=== PATIENT | female | born 1975 | race Caucasian/White ===

== ENCOUNTER 2024-01-27 04:12 | Emergency (ER) | payer SELFPAY ==
[2024-01-27 04:18] VITALS: BP 158/100; PULSE 120; TEMP 36.6; O2SAT 98; BMI 31.6
--- NOTE | 2024-01-27 04:24 | XR_ITS ---
The [address] [address] Patient Name: RICHARD VILLA MRN: [id number] date: 1975 Sex: F Assigned Patient Location: ER Current Patient Location: ED.MAIN Accession/Order Number: [id number] Exam Date: 01/27/2024 04:28 Report Date: 01/27/2024 05:06 At the request of: CARY HARRIS Procedure: XR tibia fibula LT 2V EXAM: XR tibia fibula LT 2V HISTORY: Rule out foreign body, anterior below knee redness and swelling to the left leg. COMPARISON: None available TECHNIQUE: 2 views left tibia-fibula x-rays, 4 images FINDINGS: Soft tissue swelling of the left leg. No acute fracture line, dislocation, or focal osseous erosion. No radiopaque foreign body. XR/XR tibia fibula LT 2V IMPRESSION: Soft tissue swelling of the left leg without radiographic evidence for acute bony injury. No radiopaque foreign body identified. Electronically authenticated by: DENTON MCNULTY Date: 01/27/2024 05:06
[2024-01-27 04:54] LABS: Basophils Absolute Auto 0.1 10^3/uL (0.0-0.1); Basophils Percent Auto 0.4 % (0.2-2.0); Eosinophils Absolute Auto 0.1 10^3/uL (0.0-0.7); Eosinophils Percent Auto 0.9 % (0.9-7.0); Hemoglobin 10.9 g/dL (12.0-16.0); Immature Granulocytes Abs Auto 0.04 10^3/uL (0.00-0.03); Immature Granulocytes Pct Auto 0.3 % (0.0-0.5); Lymphocytes Absolute Auto 1.6 10^3/uL (1.2-3.8); Lymphocytes Percent Auto 12.2 % (20.5-60.0); Mean Corpuscular HGB Conc 32.1 g/dL (29.9-35.2); Mean Corpuscular Hemoglobin 28.1 pg (26.7-34.0); Mean Corpuscular Volume 87.6 fL (81.0-99.0); Mean Platelet Volume 10.5 fL (9.5-13.5); Monocytes Absolute Auto 1.1 10^3/uL (0.3-0.8); Monocytes Percent Auto 8.7 % (1.7-12.0); Neutrophils Absolute Auto 9.9 10^3/uL (1.4-6.5); Neutrophils Percent Auto 77.5 % (43.0-75.0); Platelet Count 414 10^3/uL (150-450); Red Blood Count 3.88 10^6/uL (4.20-5.40); Red Cell Distribution Width 15.5 % (11.0-15.0); White Blood Count 12.8 10^3/uL (4.0-11.0)
[2024-01-27 05:05] LABS: BUN Creatinine Ratio 21.2; Calcium 9.3 mg/dL (8.5-10.1); Carbon Dioxide 26.5 mmol/L (21.0-32.0); Chloride 103 mmol/L (98-107); Estimated GFR (African America >60 (>=60); Estimated GFR (Non-African Ame >60 (>=60); Glucose 150 mg/dL (74-106); Potassium 3.5 mmol/L (3.5-5.1); Sodium 140 mmol/L (136-145)
--- NOTE | 2024-01-27 05:09 | ED.EXTPRO1 ---
HPI - Extremity Problem General Chief complaint: Extremity Problem, Nontraumatic Stated complaint: PAIN IN LEFT LEG Time Seen by Provider: 01/27/24 04:21 Source: patient Mode of arrival: walk-in Limitations: no limitations History of Present Illness HPI Narrative: 48-year-old female presents for red nests and swelling to her left lower leg anteriorly. She believes she has a skin infection, she has had it previously. No fever. She had a scratch on her leg. No chest pain or shortness of breath fever or vomiting. Symptoms been present for few days and it is getting a bit worse. Related Data Home Medications ?Medication ?Instructions ?Recorded ?Confirmed alprazolam 1 mg tablet 1 mg PO BID 01/27/24 01/27/24 dextroamphetamine-amphetamine 20 20 mg PO BID 01/27/24 01/27/24 mg tablet Previous Rx's ?Medication ?Instructions ?Recorded cephalexin 500 mg capsule 500 mg PO QID 10 days #40 caps 01/27/24 Allergies Allergy/AdvReac Type Severity Reaction Status Date / Time No Known Drug Allergies Allergy Verified 01/27/24 04:18 Review of Systems ROS Narrative A ten point review of systems is negative except as noted above. Exam Narrative Exam Narrative: Nurses note and vital signs reviewed and patient is not hypoxic. General: The patient appears well and in no apparent distress. Patient is resting comfortably on cart. Skin: Warm, dry, no pallor noted. There is erythema on the left lower leg distally, anteriorly. The calf is not erythematous. The erythema mildly extends up towards the knee. There is no open area or drainage. Head: Normocephalic, atraumatic Eye: Normal conjunctiva, no drainage Ears, Nose, Mouth, and Throat: oral mucosa is moist. Nares patent. Cardiovascular: Regular Rate and Rhythm Respiratory: Patient is in no distress, no accessory muscle use, lungs are clear to auscultation, no wheezing, rales or rhonchi Back: non-tender GI: Soft and nontender Musculoskeletal: Left lower leg is mildly swollen and erythematous as described above Neurological: A&O, normal speech Psychiatric: Cooperative Constitutional Vital Signs, click to edit/add: Last Vital Signs Temp 97.8 F 01/27/24 04:18 Pulse 120 H 01/27/24 04:18 Resp 18 01/27/24 04:18 BP 158/100 H 01/27/24 04:18 Pulse Ox 98 01/27/24 04:18 O2 Del Method Room Air 01/27/24 04:18 Course Vital Signs Vital signs: Vital Signs Temperature 97.8 F 01/27/24 04:18 Pulse Rate 120 H 01/27/24 04:18 Respiratory Rate 18 01/27/24 04:18 Blood Pressure 158/100 H 01/27/24 04:18 Pulse Oximetry 98 01/27/24 04:18 Oxygen Delivery Method Room Air 01/27/24 04:18 Temperature 97.8 F 01/27/24 04:18 Pulse Rate 120 H 01/27/24 04:18 Respiratory Rate 18 01/27/24 04:18 Blood Pressure 158/100 H 01/27/24 04:18 Pulse Oximetry 98 01/27/24 04:18 Oxygen Delivery Method Room Air 01/27/24 04:18 MDM - Extremity (Nontraumatic) MDM Narrative Medical decision making narrative: My clinical impression is that she has cellulitis. At this point I do not feel that she requires admission to the hospital. She was given IV Ancef and prescribed Keflex. She will return for worsening symptoms. I have no clinical concern for DVT. Treatment diagnosis and follow-up were discussed with the patient. Differential Diagnosis Differential diagnosis: Likely other (Cellulitis, DVT) Lab Data Labs: Lab Results 01/27/24 Range/Units 04:44 WBC 12.8 H (4.0-11.0) 10^3/uL RBC 3.88 L (4.20-5.40) 10^6/uL Hgb 10.9 L (12.0-16.0) g/dL Hct 34.0 L (36.0-48.0) % MCV 87.6 (81.0-99.0) fL MCH 28.1 (26.7-34.0) pg MCHC 32.1 (29.9-35.2) g/dL RDW 15.5 H (11.0-15.0) % Plt Count 414 (150-450) 10^3/uL MPV 10.5 (9.5-13.5) fL Neut % (Auto) 77.5 H (43.0-75.0) % Lymph % (Auto) 12.2 L (20.5-60.0) % Smith % (Auto) 8.7 (1.7-12.0) % Eos % (Auto) 0.9 (0.9-7.0) % Baso % (Auto) 0.4 (0.2-2.0) % Neut # (Auto) 9.9 H (1.4-6.5) 10^3/uL Lymph # (Auto) 1.6 (1.2-3.8) 10^3/uL Smith # (Auto) 1.1 H (0.3-0.8) 10^3/uL Eos # (Auto) 0.1 (0.0-0.7) 10^3/uL Baso # (Auto) 0.1 (0.0-0.1) 10^3/uL Abs Immat Gran (auto) 0.04 H (0.00-0.03) 10^3/uL Imm/Tot Granulo (auto) 0.3 (0.0-0.5) % Imaging Data Left tibia: Radiologist's impression: ITS Impressions Tibia/Fibula X-Ray 01/27/24 04:24 IMPRESSION: Soft tissue swelling of the left leg without radiographic evidence for acute bony injury. No radiopaque foreign body identified. Electronically authenticated by: DENTON MCNULTY Date: 01/27/2024 05:06 Discharge Plan Discharge Stand Alone Forms: Portal Instructions Chief Complaint: Extremity Problem, Nontraumatic Clinical Impression: Cellulitis Patient Disposition: Home, Self-Care Time of Disposition Decision: 05:09 Condition: Good Prescriptions / Home Meds: New cephalexin 500 mg capsule 500 mg PO QID 10 Days Qty: 40 0RF No Action alprazolam 1 mg tablet 1 mg PO BID dextroamphetamine-amphetamine 20 mg tablet 20 mg PO BID Print Language: Salvadorean Instructions: Cellulitis (ED) Referrals: MARIANO JONES [Primary Care Provider] - 1 week
[2024-01-27] MEDS: CEFAZOLIN SODIUM/DEXTROSE,ISO 1 GM/50 ML IV.SOLN IV (05:18)
[2024-01-27 06:06] VITALS: BP 129/83; PULSE 110; O2SAT 99
== END 2024-01-27 06:09 | disposition home or self-care (01) ==
PROVIDERS: Emergency Provider Emergency Medicine; PCP Nurse Practitioner Family
DX: L03.116 Cellulitis of left lower limb (principal); Z79.899 Other long term (current) drug therapy
CPT/HCPCS: 36415; 73590; 80048; 85025; 96365; 99284

== ENCOUNTER 2024-02-01 03:15 | Emergency (ER) | payer SELFPAY ==
[2024-02-01 03:19] VITALS: BP 177/86; PULSE 116; TEMP 36.7; O2SAT 96; BMI 30.8
--- NOTE | 2024-02-01 03:40 | ED_ITS ---
HPI - Skin/Abscess/Foreign Bdy General Chief complaint: Skin/Abscess/Foreign Body Stated complaint: R SKIN RASH Time Seen by Provider: 02/01/24 03:33 Source: patient Mode of arrival: walk-in Limitations: no limitations History of Present Illness HPI narrative: 48-year-old female presents for redness to her right ankle area. She believes she was bit by a spider. She was seen here few days ago and had similar finding on the left lower leg anteriorly. She was given IV Ancef and placed on Keflex and that area is much better now. This area of redness developed within the last day. No drainage and she did not see any spiders. No fever vomiting or generalized weakness. Related Data Home Medications ?Medication ?Instructions ?Recorded ?Confirmed alprazolam 1 mg tablet 1 mg PO BID 01/27/24 02/01/24 dextroamphetamine-amphetamine 20 20 mg PO BID 01/27/24 02/01/24 mg tablet Lamictal PO BID 02/01/24 fluoxetine PO BID 02/01/24 Previous Rx's ?Medication ?Instructions ?Recorded cephalexin 500 mg capsule 500 mg PO QID 10 days #40 caps 01/27/24 sulfamethoxazole 800 1 tab PO BID 10 days #20 tabs 02/01/24 mg-trimethoprim 160 mg tablet (Bactrim DS) Allergies Allergy/AdvReac Type Severity Reaction Status Date / Time No Known Drug Allergies Allergy Verified 02/01/24 03:25 Review of Systems ROS Narrative A ten point review of systems is negative except as noted above. Exam Narrative Exam Narrative: Nurses note and vital signs reviewed and patient is not hypoxic. General: The patient appears well and in no apparent distress. Patient is resting comfortably on cart. Skin: Warm, dry, no pallor noted. There is erythema primarily in the right posterior ankle area extending onto her lateral foot. There is no open area or drainage or ulceration. Head: Normocephalic, atraumatic Eye: Normal conjunctiva, no drainage Ears, Nose, Mouth, and Throat: oral mucosa is moist. Nares patent. Cardiovascular: Regular Rate and Rhythm Respiratory: Patient is in no distress, no accessory muscle use, lungs are clear to auscultation, no wheezing, rales or rhonchi Back: non-tender GI: Soft and nontender Musculoskeletal: The patient has no evidence of calf tenderness, no pitting edema, symmetrical pulses noted bilaterally Neurological: A&O normal speech Psychiatric: Cooperative Constitutional Vital Signs, click to edit/add: Last Vital Signs Temp 98.0 F 02/01/24 03:19 Pulse 116 H 02/01/24 03:19 Resp 16 02/01/24 03:19 BP 177/86 H 02/01/24 03:19 Pulse Ox 96 02/01/24 03:19 O2 Del Method Room Air 02/01/24 03:19 Course Vital Signs Vital signs: Vital Signs Temperature 98.0 F 02/01/24 03:19 Pulse Rate 116 H 02/01/24 03:19 Respiratory Rate 16 02/01/24 03:19 Blood Pressure 177/86 H 02/01/24 03:19 Pulse Oximetry 96 02/01/24 03:19 Oxygen Delivery Method Room Air 02/01/24 03:19 Temperature 98.0 F 02/01/24 03:19 Pulse Rate 116 H 02/01/24 03:19 Respiratory Rate 16 02/01/24 03:19 Blood Pressure 177/86 H 02/01/24 03:19 Pulse Oximetry 96 02/01/24 03:19 Oxygen Delivery Method Room Air 02/01/24 03:19 MDM - Skin/Abscess/Foreign Bdy MDM Narrative Medical decision making narrative: The patient had recent blood work that was normal. She was given IV vancomycin. She will continue the Keflex that she is already on and will be prescribed Bactrim as well. Treatment diagnosis and follow-up were discussed with the patient. Differential Diagnosis Differential diagnosis: Likely dermatophytosis, cellulitis, insect bites and contact dermatitis Discharge Plan Discharge Stand Alone Forms: Portal Instructions Chief Complaint: Skin/Abscess/Foreign Body Clinical Impression: Cellulitis of right ankle Patient Disposition: Home, Self-Care Time of Disposition Decision: 04:12 Condition: Good Mode of Transportation: Private Vehicle Prescriptions / Home Meds: New sulfamethoxazole-trimethoprim [Bactrim DS] 800-160 mg tablet 1 tab PO BID 10 Days Qty: 20 0RF No Action alprazolam 1 mg tablet 1 mg PO BID dextroamphetamine-amphetamine 20 mg tablet 20 mg PO BID cephalexin 500 mg capsule 500 mg PO QID 10 Days Qty: 40 0RF Lamictal PO BID fluoxetine [Prozac] PO BID Print Language: Grenadian Instructions: Cellulitis (ED) Referrals: MARIANO JONES [Primary Care Provider] - 1 week
--- OUTSIDE RECORDS SUMMARY | 2024-02-01 04:13 | XMS_ITS | CCD ---
Author Organization [facility] Care Team Providers Care Barking Machine Feeder Name Role Phone Swathi Omalley Unavailable Swathi Omalley Primary Care Unavailable Dong Mckeon Attending Unavailable Dong Mckeon Admitting Unavailable Swathi Omalley Primary Care Unavailable Vivi Cazares Attending Unavailable Vivi Cazares Admitting Unavailable Allergies Allergy Classification Reported Allergen(s) Allergy Type Date of Onset Reaction(s) Facility (1 source) No Known Medication Allergies; Translations: [No Known Medication Allergies] Propensity to adverse reactions to drug (disorder) [facility] Repository Medications Current Medications Medication Drug Class(es) Dates Sig (Normalized) Sig (Original) ALPRAZolam 1 mg oral tablet (3 sources) Benzodiazepine take 1 tablet intravenously three times daily as needed ALPRAZolam 1 MG (Schedule IV Drug) TAKE 1 TABLET THREE TIMES A DAY NEEDED Oral for 30 Active FLUoxetine 20 mg oral capsule (3 sources) Serotonin Reuptake Inhibitor take 2 capsules by mouth every twenty-four hours Fluoxetine 20 MG 2 capsules Orally Once a day Active hydroCHLOROthiazide 25 mg oral tablet (4 sources) Thiazide Diuretic Start: 07-05-20 take 1 tablet by mouth every twenty-four hours hydroCHLOROthiazide 25 MG 1 tablet in the morning Orally Once a day for 30 day(s) Jul, Active lamoTRIgine 200 mg oral tablet (3 sources) Mood Stabilizer, Anti-epileptic Agent take 2 tablets by mouth every twenty-four hours lamoTRIgine 200 MG 2 tablets Orally Once a day Active perphenazine 2 mg oral tablet (3 sources) Phenothiazine take 1 tablet by mouth every twenty-four hours Perphenazine 2 MG 1 tablet Orally once daily Active predniSONE (1 source) predniSONE Activ e Completed/Discontinued Medications Medication Drug Class(es) Dates Sig (Normalized) Sig (Original) amphetamine aspartate 5 mg / amphetamine sulfate 5 mg / dextroamphetamine saccharate 5 mg / dextroamphetamine sulfate 5 mg oral tablet (1 source) Central Nervous System Stimulant take 1 tablet by mouth twice daily Adderall 20 MG 1 tablet Orally two times daily Not-Taking cloNIDine hydrochloride 0.1 mg oral tablet (1 source) Central alpha-2 Adrenergic Agonist cloNIDine HCl 0.1 MG TAKE 1 TABLET TWICE A DAY Orally twice daily for 30 days Not-Taking Problems Active Problems Problem Classification Problem Date Documented Da te Episodic/Chronic Congestive heart failure; nonhypertensive (3 sources) Heart failure; Translations: [Heart failure, unspecified] Chronic Essential hypertension (4 sources) Essential hypertension; Translations: [Essential (primary) hypertension] Onset: 07-26-2021 Resolved: 07-26-2021 Chronic Mood disorders (3 sources) Bipolar disorder; Translations: [Bipolar disorder, unspecified] Chronic Other nervous system disorders (3 sources) Chronic pain; Translations: [Other chronic pain] Chronic Other nutritional; endocrine; and metabolic disorders (2 sources) Hypoalbuminemia; Translations: [Other disorders of plasma-protein metabolism, not elsewhere classified] Chronic Thyroid disorders (4 sources) Graves' disease; Translations: [Thyrotoxicosis with diffuse goiter without thyrotoxic crisis or storm] Onset: 07-26-2021 Resolved: 07-26-2021 Chronic Past or Other Problems Problem Classification Problem Date Documented Da te Episodic/Chronic Other non-traumatic joint disorders (3 sources) Pain in right hip joint; Translations: [Pain in right hip] Episodic Spondylosis; intervertebral disc disorders; other back problems (6 sources) Lumbar radiculopathy; Translations: [Radiculopathy, lumbar region] Episodic Results Test Name Value Interpretation Reference Range Facility ECG 12 lead ECGon 01-27-2024 ECG 12 lead ECG [facility] [place] [address] Electrocardiograph Report Signed Patient: Richard Wills MR#: [id number] 9 : 1975 Acct:[id number] Age/Sex: 48 / F ADM Date: 01/26/24 Loc: ER Room: Type: [facility] ER Attending Dr: Ordering Provider: Vivi Cazares DO Date of Service: 01/26/24 ECG/ECG 12 lead ECG: Skin/Abscess/Foreign Body Copies to: Test Reason : Blood Pressure : 161/099 mmHG Vent. Rate : 108 BPM Atrial Rate : 108 BPM P-R Int : 148 ms QRS Dur : 078 ms QT Int : 354 ms P-R-T Axes : 076 -43 066 degrees QTc Int : 474 ms Sinus tachycardia Left axis deviation Low voltage QRS Abnormal ECG When compared with ECG of 23-AUG-2019 13:52, No significant change was found Confirmed by VIVI CAZARES DO ([id number]) on 01/27/2024 12:27:24 PM Referred By: Electronically Signed By:VIVI CAZARES DO Transcribed By: MUS Signed By Vivi Cazares DO [id number] Normal [facility] Coding Summaryon 06-26-2023 Coding Summary HTMLBase 64 PvahmxudQQl6wYo+PGhl YWQ+VQ3RZWWlO02amEXf pO0qZ7JGCUeZYgzkUSQY IAoOOuLfpxGrGF0nyBOx ZXJu IC8+QG8mVZQeZiwqiAAv z9K8rPD9N50sot4pQAvs rRX7QBSpCzYssqoru7gk xNt9FUuxEurgScKl JEJihS93ITU0hD67Zo44 pJUjxGIil5aueFo6TqXx RDEfUJZ7mTwfEUymc8Ta PPUqF70geSZdf6N7 IGNvbGxhcHNlOyBlbXB0 fV8oXYeuqcwxs8klvrww Tqg1lh66aHDfg2Z8xLU9 E4PqcbX1LTAiwMSz ZvzcxAYOfO3cokarq9lu txkaWzTlUGXnYEq8YVc6 FJVzdJylJsIhAM88DIF3 CPTnuiCrR5QoBNHg mTyzBfC9l9G3Tp5NZ7YX RmclA1CSFVEYHGedaBT+ FM29ej70Z4KvZjftAav9 TJWcWKX0wYN2mM5y DBSiPCdlu0W1bKF8M5Sm maHfvg1fg1cvSRIoSKlh X07udDSip4O3CUOgxMJ3 NGGglOrsUoNbgF74 Oyc+EICshTirb0BcZzze b1shl4rliXn5PmgrBNOq meVzwBlzFUE2j5JbHy7e JIHfwXY4pBV2nT1u JrBqMnD9OGsuD286OnWb sTGaYqoqD70dX3OlfMP+ OVEgVjt1XDZvxGodAW1s H7YrIQSxnsaaaJHv hKotRO1jCAZmtzrrYZTx yA2rBGPhV7m4LdYvZpW1 RMdyN9EvFHKlxsibBh99 cH7uMlWnQwW5PMdq E6VerqN9ECMoyEThSYqc DVJ3O09qd1S4APAfNUDv MEP2tOQ4jM5zuMeswipf bGVmdDsgdmVydGlj XBgwJPdvE292RNYpzNmk PkNvZGluZyBEYXRlOiAg MDkvMjYvMjAyMzwvdGQ+ RTGkSRU8sAuwBHYt jWCxMAylWx3xbFfnxCdq RG6kKXIehrwyHBUuwG1w OHRdzBXfxVlwYU3iBBUb jopks465HvLfTTE2 SYZpsTDiE3ErvB9fGeGk YBEpEXEyX8UbdFSzRDjv N232VFvaNaV9HMHooyPt U1UqVHNkbSqkAzI4 o2W5Fu3No2ErcoapC5Kl tJOlToApLhplMRv5A2Fr PjwvdHI+XJ73MSUeDE63 LMn7EDJ3zYgnUVou HLOoC5QvgA7aOwRuHXTp ZGRkOyc+PHRhYmxlIHdp ZHRoPScxMDAlJyBzdHls WB7lGy2hMZJeJRBh uSpwzDXpTzEde1fsEPIh IUsnXD4dtPymR5BaxOM5 FINmr9k9Hm00U24yH0Qa dXA+PCQvyPT4vGL0 rD1kFeNvWxO3MXxrL644 GaFonVHlOvccp4hja1wg jNd3AkX9TKXspcAmgOen FCD6x3PiQy28B95e IHdpZHRoPSIxNSUiIHZh xYrrpl2nbZ8lUp9+PGNv dEY6aKG6rG8zDtSyUtZ8 OIkiM222RjKwlOXa Ocvdp5bpx8wtgHv5XpXl SDFpjpBzdJthZAI3p0Bm Wd78U6NuyInno0FhRlk5 hg43oSCme9B8nDT8 H1OdMBBmkaitvBYfhHqw LG6eTQMykpdaQLXtfH2v ZKYjI4b0OjTtToJ9LMxv T5LngfT2DOQglHUd OYJctABIeF6jpaefj9tz uuuwQcXzUUWkDAq4CIc1 LMHzoZhiDfEiKXC5CxC2 FTG8tXYswA9zjXbt pppsuF9rKis+IEA3qNEs zQCRJL6fTmyudSS+PHRk GHB7rWfqGUdoQNBdrY3t GDRbI3z6HhQwWmU1 QQfjZ0HrdhD8VJUemHIm KMCmzWLKvS9puxkhq8lu gfhmXcMoJPLxCPv5MZw7 LWFsaWduOiBsZWZ0 NuZ5EVH7tNDsgH6xsEbb zbewcH1oDkq+QmlydGgg MTG9NTa4V1QbZgk8GBVy tErzAU5ciZBwQLnf Sh6zlUeecOaxML8pUZOd yzlkt768MdIvy8atTWGz uCRnSCizPWN0O98ij1C6 XJDqQPGaBIB8hHE0 lL6itYjocbponBXjoTey fyImmWvnVXdcTJijQ511 PWJfyOieFjMhNXx6Z3Di Qsf0ZUUyuYuxKN2n mUStLOixKg2gxXjijJfv PG9hAAOqarpco306BeIp m8boAOTtkZJuFPwvQZL6 R82zi3Z9SQZmFISq WWY9sNT6xN3pyXtbpbyq bGVmdDsgdmVydGljYWwt CHxmC624SITmrDgaCoAi uTn9W9FvAay3HJMq bKcvKJ5kmBBuXWecAr9j sFlnmCvlXG4qISAskppo l750GaFax5muHXXmfCDk RXnzTLN7H68jl0F5 PECyJQYdFKT8qAF4vD9q bGlnbjogbGVmdDsgdmVy oYrcGFzyTHciB009HRVn cDsnPlBhdGllbnQg GAojEOd7S4RoKqooiYY+ QT06CJQbHI95tDFgnMOb x4nzvLe3OuCrXLExFZH0 hJcxHAnja8SsFQHb H04nwDOpj5X8AULtiKay oAEqCnHrtET6eO6zCJli brnom5rzkmsnCpqhg0ys ye59lB57P75rCEwu ZHRoPSIzMCUiIHZhbGln nl9eyL2jQi3+PGNvbCB3 uBZ6hK5hYNEqNsM2SNvw N698FyCzlUWcFdbi l2pjw3tslAq3LzW6AFSv wpXxwNkxZLB0q0GmHn78 A17pENbjGRGgXZBsDZOu RLGekWvugr4dbO7i Ii8+QVEbnBY0kBU9wG5o PdUvEqP9DEcnB979UaPj uJMuIqhrN59tV7FdfPN+ UPIlTgu6EXDzuWey GT6bwVVpKLmdQa5cNTV4 QiUqQrHmGCznY3UzNAYg tjbwuuswqSB5SNUnEQGc dM69Jf6ugRkhGUVy rFBCtG0jqabbf1npamjt BnYdUKGsTRi3ZAd2SELo qDmnNgLpHBV9BoZ1TNY3 kAPeoS4kfIwudhkv hD2kX0RrDCQdqecfUu52 mE1sChPiJeW5EAdfDjd+ MGAEUqnIFCQKYFCFVZ7P UkVFTjwvdGQ+PHRk WCN3bLydOUijSMNutE3b EJBuK0f1QfVsXjK3VOrg T1CrGPTjwgwfAr94xH1s OvYoAfI8FPjcX6Um cyG3AACciGCdQRtnSFJ2 H70xm4A2SNCnIGDmCWC1 dMX1vT5dxTxqxnifpWWb dDsgdmVydGljYWwt VAqyG964FSQkfXueYnO9 SqMhJrJ8JpE7L4BdVtw9 IYQboWcpIU0bkKMoNDeu Uk7rzRhbhXyrCZ6r QJSwantrANBffN5rQLZi jZTjfNvtIL8eHVHsajgz c537BhYlLGM3RMWuxUPk N2KosN2yVvOnLQYn QXAlO8HpoZVhCGjrI692 JXkqToI4CPEgohXaF9Er WKRruJoyGpQ4w2K5Sz96 OSBZZWFyczwvdGQ+ GYEuOFL0bJcfUPtxVPIx cW6uEKEqZ3n5YwYsTuK4 EIzlU7SiQFZplvgpBz89 pS9pIsKjNeM4ELmv V8LwtmY7XHUftOHlNWkk TSC6L58lh9R2SJSgUUFr NDK4cSH5jG5kdWbvgnei bGVmdDsgdmVydGlj TFwhVMuvH081NXLsyBgo PkZFTUFMRTwvdGQ+PHRk FZR8kBluZPotVNQixD1j YEGtQ3f9HbVwYgD1 MNiwP1EvLVAdfyxfEh35 lA2sFaVmUmX9IPnxU2Yg lcJ4JGYgdUAcSCpuLRC9 B77lb6T5NKPqCBWg ZES2vBG8tN4iaHdtsekq bGVmdDsgdmVydGljYWwt CMesQ400QVCodZppAdWx HHKmCL4wsFwhxLG+ KB13qj46Y9CjNlbsTss4 GAXiBFH4yHB4xS9iTEMa IYowz8V7vXN3S6UjzuWq gc9uf8ziAPFnGPkn P91dkDKll8R6BKPpuFF1 GREeoMreZuHbzD15Iqj+ OFKcbKbzo1YiAnpgy2ad z5dpzSi8BpJfNGYz ecBesVhwRUC4x6UtIb72 Q24aKFgbXQViNWKfAXTv SCAqbBdixe6zdK4qGt3+ ITFtlEZ1kVJ9rR8i YvWxEqA6MVrcE722GzHd wTPtAdrmo4vfp0guwIo3 IjIwJSIgdmFsaWduPSJ0 h0KyEk35W2HshVvl z5BzOgl9wr70aJTif4U6 fIJ8C6QyQYItfkxmkZXj oQfoKM4nAYDedipbHPTx vE2bSMLdP1y3RqUl GmY3IYbtS6RnxoT6WEGz nEUlDTAwsKNMmA5chrnp c9hfyudeVfTbOTGkCDb1 YCo8STXlvDigQeTg KLQ9KhN0WRX2aITonJ7q mPydgsnoqX3nPdc+UGh5 q2fteAMzOQ0stLE2WZ51 HC35tBFjk1D6vEK2 J8TyMVXeafjodofvyRT0 ILHtPSSezZ64Kl1qcKac Dz0bEQEiYWW8UIYhqXGt O1RxaT2oSlTrZVUs QVUiN4RwiWRrNDrcC339 BBhpDxC5LYQbhwGfP5Sr HFOhqSruLcI1i1C5Sg2K HB13VT00QX25zSJz z1R9qBM5M2JkBNUrdsjj fesngMC1ZAQxOCTggV52 Rz8fgHnaJv4kYKUhQGI6 MBTikMYxJ9JiuQ2m ZuYyZQErAICkL4EpbMVb BIwiM373KPuiOqX4RFOs lmBlY6MwUZQmmEclNfU4 q6B2Hn0ATa52FB30 SC65eUQwd3H5sIE7Q1Ze AWCzbdligblgvRY6DEBg PKFbbJ63Ng1woBgfWz0q UMNfQPE9CWHkvAKn H7WnvZ7aJjBaZPScNLAo V9DhrUMoYLaeA272PGdx HlA6JSPxobKoR1IrLWJa yUzrMyB0e8A7Ji1Z JUcmbid2H2SgAnbucRC+ GS23JNAgGX11xLTxbVGt b8tyvDd6InKsJCRcRHH1 nDypBUmch1QuZXWn Y29 (more content not included)... [facility] Coding Queryon 06-25-2023 Coding Query Can you please document the HPI, ROS and physical exam for this chart? Thanks. [Electronically Signed on: 06/25/2023 20:25 EDT] Dong Mckeon DO [Verified on: 06/25/2023 20:25 EDT] Dong Mckeon DO [Transcribed on: 06/25/2023 20:06 EDT] [facility] C Urineon 06-16-2023 C Urine Urine Culture ordered as a result of parameters set on specific urine dip and urine microsopic results. <10,000 cfu/ml Normal [facility] Comment on above: Performed By: #### 1 [id number] #### [facility] (DEFAULT) [address] [place] [address] ED Clinical Summaryon 2022 ED Clinical Summary [facility] - Emergency Department [address] [place] [id number] ED Clinical Summary PERSON INFORMATION Name: RICHARD WILLS Age: 47 Years Sex: FEMALE : 1975 MRN: Acct#: Visit Reason: Back pain; Urine frequency; Dysuria; Kidney pain; BACK PAIN, DYSURIA Arrival: 06/14/2023 00:11:44 Discharge: 06/14/2023 02:17:00 LOS: 000 02:06 Check In: 06/14/2023 00:11:44 Checkout:06/14/2023 02:17:00 Address: [address] [place] [id number] PCP: Swathi Omalley DNP PROVIDER INFORMATION Provider Role Assigned Unassigned Barrett RN, [place] ED Nurse 06/14/2023 00:18:16 Dong Mckeon DO ED Provider 06/14/2023 00:53:16 VITALS INFORMATION Vital Sign Triage Latest Temperature Tympanic 37.0 DegC 37.0 DegC Temperature Temporal Artery Pulse Rate 73 bpm 55 bpm O2 Sat 99 % 96 % Respiratory Rate 17 br/min 18 br/min Blood Pressure /82 mmHg /82 mmHg MEDICAL INFORMATION Medications Given: Medication Dose Route phenazopyridine (Pyridium) 200 mg PO cephalexin 500 mg PO ibuprofen 600 mg PO Allergy Information: No Known Medication Allergies PHYSICIAN DOCUMENTATION DISCHARGE INFORMATION: Discharge Disposition: Home Discharge Location: Home PATIENT EDUCATION INFORMATION Instructions: Urinary Tract Infection, Adult Follow-Up: With: Address: When: Swathi Omalley [address] [place] [address] [facility] In 3 days 06/17/2023 Comments: home pyridium for discomfort, till turn urine orange Cephalexin for antibiotic Ibuprofen 600 mg three times per day for discomfort RETURN: FEVER< VOMIT< UNCONTROLLED PAIN We will call you if we need to change your antibiotic, based on the culture of dthe urine T H EMORY< ER PHYSICIAN< HB VITOR DIAGNOSIS: Dysuria Patient Understands: Yes - Patient/family/careg iver verbalizes understanding of instructions given Comment: [facility] ED Note - Physicianon 2022 ED Note - Physician Patient: RICHARD WILLS Age: 47 years Sex: FEMALE : 1975 Associated Diagnoses: Dysuria Author: Dong Mckeon DO Basic Information Time seen: Date & time 06/14/2023 00:54:00. History source: Patient. Arrival mode: Private vehicle, walking. History limitation: None. History of Present Illness The patient presents with This patient presents to the emergency room for increasing discomfort of the back, states 2 days, started old amoxicillin at home, also taking cranberry pills nothing is working for her she states she has had urinary tract infections in the past, she has frequency and urgency, getting up pretty often, he states that it got particularly worse today, no vomiting no fever, no history of kidney stones, not , no vomiting. No rashes, the discomfort is in the suprapubic area mostly but some soft in the back as well. She is seen in room #5, she is alert and appropriate, her head is normocephalic, neck is supple, no anterior posterior supraclavicular nodes, lungs are clear, no expiratory wheeze rales rhonchi Heart rate and rhythm 100 murmurs abdomen is soft, only discomfort is in the suprapubic area subjectively, relieved when she urinates she states. Extremities are nonswollen nontender. After Pyridium and ibuprofen, her discomfort was remarkably less, urine turned orange, her repeat examination much improved . Medical Decision Making Orders Launch Orders Pharmacy: Pyridium (Order): 200 mg, PO, Once ibuprofen (Order): 600 mg, PO, Once, Launch Orders Laboratory: Culture Urine (Order): Urine, Clean Catch, 06/14/2023 1:58 EDT, Stat collect, Nurse collect Pharmacy: cephalexin (Order): 500 mg, PO, Once. Reexamination/ Reevaluation Time: 06/14/2023 01:55:00 . Vital signs After ibuprofen and pyridium, back discomfort is much improved; urine (+) leukocytes, will treat with antibiotic (patient elected not to take a ct for stones) Impression and Plan Diagnosis Dysuria ([id number] R30.0, Discharge, Medical) Plan Disposition: Discharged: time 06/14/2023 02:00:00. Prescriptions: Launch prescriptions Pharmacy: cephalexin 500 mg oral capsule (Prescribe): 500 mg = 1 cap(s), PO, TID, for 7 day(s), 21 cap(s), 0 Refill(s), Launch prescriptions Pharmacy: Pyridium 200 mg oral tablet (Prescribe): 200 mg = 1 tab(s), PO, TID, for 3 day(s), 9 tab(s), 0 Refill(s). Patient was given the following educational materials: Urinary Tract Infection, Adult. Follow up with: Swathi Omalley In 3 days 06/17/2023 home pyridium for discomfort, till turn urine orange Cephalexin for antibiotic Ibuprofen 600 mg three times per day for discomfort RETURN: FEVER< VOMIT< UNCONTROLLED PAIN We will call you if we need to change your antibiotic, based on the culture of dthe urine T H EMORY< ER PHYSICIAN< RADHA VARGAS. Counseled: Patient, Regarding diagnosis, Regarding diagnostic results, Regarding treatment plan, Regarding prescription, Patient indicated understanding of instructions. [Electronically Signed on: 06/25/2023 20:24 EDT] Dong Mckeon DO [Electronically Signed on: 06/26/2023 00:27 EDT] Dong Mckeon DO [Electronically Signed on: 06/26/2023 00:27 EDT] Dong Mckeon DO [Verified on: 06/25/2023 20:24 EDT] Dong Mckeon DO [facility] ED Note-Nursingon 06-14-2023 ED Note-Nursing Patient ambulated to ED Room 5 from home with concerns of middle upper back pain, kidney pain, increase urine frequency and burning with urination. Patient states that she has been taking Amoxicillin approximately a year old. Patient is alert and oriented x 4, no SOB, no abdominal pain, and skin is warm and dry. Patient ambulated to restroom and provided an urine specimen. RN sent urine specimen to lab. [facility] ED Patient Summaryon 023 ED Patient Summary [facility] - Emergency Department [address] [place] [address] PATIENT DISCHARGE INSTRUCTIONS Patient Information Name: RICHARD WILLS Age: 47 Years Date of : 1975 Reason For Visit: Back pain; Urine frequency; Dysuria; Kidney pain; BACK PAIN, DYSURIA Arrival Time: 06/14/2023 00:11:44 Primary Care Physician: Swathi Omalley DNP Attending Physician: Dong Mckeon DO Comment: Visit Diagnosis: Diagnoses This Visit Back pain (43021) Dysuria ([id number]) Dysuria (R30.0) Kidney pain (95268) Urine frequency (489777) The Pharmacy at [facility] is open Sunday through Sunday from 9A to 6P and Sunday and Sunday from 9A to 5P Prescription Information: If you have been given a prescription for narcotics, seek immediate medical attention if you have any difficulty breathing or any sudden status changes such as confusion and sleepiness. If you or anyone you know is experiencing suicidal thoughts, mental health, alcohol and/or drug addiction problems; contact the Mental Health & Recovery Board [facility] 23/04 Crisis Hotline -Text 4HOPE to 488634. If you received any narcotics, sedation, or any other medication that causes drowsiness for the next 24 hours, unless otherwise directed: ? Do not drive a car. ? Do not operate machinery such as power tools, lawn mowers, drills, sewing machines, or stoves ? Avoid alcoholic beverages and drugs for allergies, nerves, or sleep ? Do not make important personal or business decisions or sign any legal documents With: Address: When: Swathi Omalley [address] [place] [address] Business (1) In 3 days 06/17/2023 Comments: home pyridium for discomfort, till turn urine orange Cephalexin for antibiotic Ibuprofen 600 mg three times per day for discomfort RETURN: FEVER< VOMIT< UNCONTROLLED PAIN We will call you if we need to change your antibiotic, based on the culture of dthe urine T H OMLEY< ER PHYSICIAN< HB [facility] Medication Information: The exam and treatment you received today in the [facility] Emergency Department were for an urgent problem and are not intended as complete care. It is important for you to follow up with a doctor, nurse practitioner, or physician?s shipping assistant for ongoing care. If your symptoms become worse or you do not improve as expected and you are unable to reach your usual health care provider, you should return to the Emergency Department, we are available 24 hours a day. For those patients who have received Radiology results, the interpretation of your X-ray as given to you by our Emergency Department physician is only a preliminary report. The Radiologist will review your films and if there is a change in the diagnosis you will be notified by phone. Please make sure you have provided a working phone number so we can reach you if necessary. In the event that you had a lab culture while you were a patient in the Emergency Department, you will be notified by phone if there is a need to change your antibiotic. Please make sure you have provided a working phone number so we can reach you if necessary. [facility] Emergency Department has provided you with a complete list of medications post discharge. Please inform your breaker layer/provider of your visit and for further instruction on these medications. Any specific questions regarding your chronic medications and dosages should be discussed with your primary care physician(s) and/or pharmacist. New Medications Printed Prescriptions cephalexin (cephalexin 500 mg oral capsule) 1 cap(s) Oral 3 times a day for 7 Days. Refills: 0. phenazopyridine (Pyridium 200 mg oral tablet) 1 tab(s) Oral 3 times a day for 3 Days. Refills: 0. Visit Information Allergies: Substance Reaction Symptoms Type Comments No Known Medication Allergies Drug Vital Signs: Vitals and Measurements this Visit (last charted value for your 06/14/2023 visit) Vital Signs This Visit Temperature Tympanic: 37.0 DegC Peripheral Pulse Rate: 55 bpm Heart Rate Monitored: 73 bpm Respiratory Rate: 18 br/min Systolic Blood Pressure: 130 mmHg Diastolic Blood Pressure: 77 mmHg Mean Arterial Pressure, Cuff-Calculation: 95 mmHg Mean Arterial Pressure Cuff-Monitor: 104 mmHg SpO2: 96 % Oxygen Therapy: Room air Measurements This Visit Height/Length Dosin.800 cm Height/Length Estimated: 177.800 cm Weight Dosin.700 kg Weight Estimated: 97.700 kg Problems List: Problem Onset Comments No Problems found Patient Education Urinary Tract Infection, Adult A urinary tract infection (UTI) is an infection of any part of the urinary tract. The urinary tract includes the kidneys, ureters, bladder, and urethra. These organs make, store, and get rid of urine in the body. An upper UTI affects the ureters and kid (more content not included)... [facility] UA [id number] 06-14-2023 UA Amorph. Rare [facility] Comment on above: Order Comment: Urina lysis Microscopic order added on by [employer]r Expert Rules system. Performed By: #### 1 [id number] #### [facility] (DEFAULT) [address] [place] [id number] UA Bacteria Trace [facility] Comment on above: Order Comment: Urina lysis Microscopic order added on by [employer] Expert Rules system. Performed By: #### 1 [id number] #### [facility] (DEFAULT) [address] [place] [address] UA Mucous 4+ [facility] Comment on above: Order Comment: Urina lysis Microscopic order added on by [employer] Expert Rules system. Performed By: #### 1 [id number] #### [facility] (DEFAULT) [address] [place] [id number] UA RBC 3-5 [facility] Comment on above: Order Comment: Urina lysis Microscopic order added on by Dis[employer] Expert Rules system. Performed By: #### 1 [id number] #### [facility] (DEFAULT) [address] [place] [address] UA Squam Epi Few [facility] Comment on above: Order Comment: Urina lysis Microscopic order added on by Discern Expert Rules system. Performed By: #### 1 [id number] #### [facility] (DEFAULT) [address] [place] [id number] UA WBC 15-20 [facility] Comment on above: Order Comment: Urina lysis Microscopic order added on by Lux[employer] Expert Rules system. Performed By: #### 1 [id number] #### [facility] (DEFAULT) [address] [place] [address] UA w Culture if Ind Standard on 06-14-2023 Breakpoint UA [facility] Comment on above: Performed By: #### 1 [id number] #### [facility] (DEFAULT) [address] [place] [address] Color (U) Yellow [facility] Comment on above: Performed By: #### 1 [id number] #### [facility] (DEFAULT) [address] [place] [address] Culture? Indicated Invalid Interpretation Code [facility] Comment on above: Result Comment: Resu lt created by rule GL_MAGR_ADD_UA_CULT Result created by rule GL_MAGR_ADD_UA_CULT Result created by rule GL_MAGR_ADD_UA_CULT1 Result created by rule GL_MAGR_ADD_UA_CULT Performed By: #### 1 [id number] #### [facility] (DEFAULT) [address] [place] [id number] Glucose (U) [Mass/Vol] Negative [facility] [place] Comment on above: Performed By: #### 1 [id number] #### [facility] (DEFAULT) [address] [place] [id number] Ketones Ql (U) Negative Normal [facility] Comment on above: Performed By: #### 1 [id number] #### [facility] (DEFAULT) [address] [place] [id number] Micro? Indicated Invalid Interpretation Code [facility] Comment on above: Result Comment: Resu lt created by rule [id number] Performed By: #### 1 [id number] #### [facility] (DEFAULT) [address] [place] [id number] UA Bilirubin Negative Normal [facility] Comment on above: Performed By: #### 1 [id number], [id number] #### [facility] (DEFAULT) [address] [place] [address] 74961 UA Blood MODERATE Abnormal NEGATIVE [facility] Comment on above: Performed By: #### 1 [id number] #### [facility] (DEFAULT) [address] [place] [address] 21863 UA Clarity CLEAR Normal CLEAR [facility] Comment on above: Performed By: #### 1 [id number] #### [facility] (DEFAULT) [address] [place] [address] [id number] UA Leuk Est TRACE Abnormal NEGATIVE [facility] Comment on above: Performed By: #### 1 [id number] #### [facility] (DEFAULT) [address] [place] [address] 27248 UA Nitrite Negative Normal NEGATIVE [facility] Comment on above: Performed By: #### 1 [id number], [id number], [id number] #### [facility] (DEFAULT) [address] [place] [address] 56959 UA pH 6.0 Normal 5-8 [facility] Comment on above: Performed By: #### 1 [id number], [id number] #### [facility] (DEFAULT) [address] [place] [address] UA Protein Negative Normal NEGATIVE [facility] Comment on above: Performed By: #### 1 [id number], [id number] #### [facility] (DEFAULT) [address] [place] [address] UA Spec Grav 1.025 Normal 1.001-1.035 [facility] Comment on above: Performed By: #### 1 [id number] #### [facility] (DEFAULT) [address] [place] [address] 64943 UA Urobilinogen 0.2 mg/dL Normal 0.2-1.0 [facility] Comment on above: Performed By: #### 1 [id number], [id number] #### [facility] (DEFAULT) [address] [place] [address] 49924 Urine Source Clean Catch Normal [facility] Comment on above: Performed By: #### 1 [id number] #### [facility] (DEFAULT) [address] [place] [address] Vital Signs Date Time Vital Sign Value Performing Clinician Facility 07-26-2021 09:30-0400 Body height 177.8 cm Swathi Omalley Other [facility] Other 07-26-2021 09:30-0400 Body mass index (BMI) [Ratio] 27.06 kg/m2 Swathi Omalley Other [facility] Other 07-26-2021 09:30-0400 Body temperature 99.1 [degF] Swathi Omalley Other [facility] Other 07-26-2021 09:30-0400 Body weight 85.55 kg Swathi Omalley Other [facility] Other 07-26-2021 09:30-0400 Diastolic blood pressure 70 mm[Hg] Swathi Omalley Other [facility] Other 07-26-2021 09:30-0400 Respiratory rate 18 /min Swathi Shahram Other [facility] Other 07-26-2021 09:30-0400 SaO2% (BldA) [Mass fraction] 98 % Swathi Shahram Other [facility] Other 07-26-2021 09:30-0400 Systolic blood pressure 130 mm[Hg] Swathi Shahram Other [facility] Other Encounters Encounter Date Encounter Type Care Provider Facility Start: 01-27-2024 End: 01-27-2024 Emergency department patient visit Swathi Omalley Facility:[facility] Start: 06-14-2023 End: 06-14-2023 Emergency department patient visit Swathi Omalley Facility:[facility] Start: 07-26-2021 Office outpatient vi sit 25 minutes Swathi Omalley [facility] Start: 07-14-2021 Telephone encounter Swathi Mosher [facility] Start: 07-07-2021 Telephone encounter Swathi Mosher [facility] Payers Date Payer Category Payer Self-pay 1975 Unknown [id number] Unknown [id number] Unknown [id number] Social History Date Type Detail Facility Sex Assigned At [facility] Other Clinical Note 06-14-2023 Note Date & Type Note Facility 06-14-2023 Note [facility] Obstetrics and Gynecology Urinary Tract Infection, Adult A urinary tract infection (UTI) is an infection of any part of the urinary tract. The urinary tract includes the kidneys, ureters, bladder, and urethra. These organs make, store, and get rid of urine in the body. An upper UTI affects the ureters and kidneys. A lower UTI affects the bladder and urethra. What are the causes? Most urinary tract infections are caused by bacteria in your genital area around your urethra, where urine leaves your body. These bacteria grow and cause inflammation of your urinary tract. What increases the risk? You are more likely to develop this condition if: ? You have a urinary catheter that stays in place. ? You are not able to control when you urinate or have a bowel movement (incontinence). ? You are female and you: ? Use a spermicide or diaphragm for control. ? Have low estrogen levels. ? Are . ? You have certain genes that increase your risk. ? You are sexually active. ? You take antibiotic medicines. ? You have a condition that causes your flow of urine to slow down, such as: ? An enlarged prostate, if you are male. ? Blockage in your urethra. ? A kidney stone. ? A nerve condition that affects your bladder control (neurogenic bladder). ? Not getting enough to drink, or not urinating often. ? You have certain medical conditions, such as: ? Diabetes. ? A weak disease-fighting system (immunesystem). ? Sickle cell disease. ? Gout. ? Spinal cord injury. What are the signs or symptoms? Symptoms of this condition include: ? Needing to urinate right away (urgency). ? Frequent urination. This may include small amounts of urine each time you urinate. ? Pain or burning with urination. ? Blood in the urine. ? Urine that smells bad or unusual. ? Trouble urinating. ? Cloudy urine. ? Vaginal discharge, if you are female. ? Pain in the abdomen or the lower back. You may also have: ? Vomiting or a decreased appetite. ? Confusion. ? Irritability or tiredness. ? A fever or chills. ? Diarrhea. The first symptom in older adults may be confusion. In some cases, they may not have any symptoms until the infection has worsened. How is this diagnosed? This condition is diagnosed based on your medical history and a physical exam. You may also have other tests, including: ? Urine tests. ? Blood tests. ? Tests for STIs (sexually transmitted infections). If you have had more than one UTI, a cystoscopy or imaging studies may be done to determine the cause of the infections. How is this treated? Treatment for this condition includes: ? Antibiotic medicine. ? Rxll-nlp-hqfnmtg medicines to treat discomfort. ? Drinking enough water to stay hydrated. If you have frequent infections or have other conditions such as a kidney stone, you may need to see a health care provider who specializes in the urinary tract (urologist). In rare cases, urinary tract infections can cause sepsis. Sepsis is a life-threatening condition that occurs when the body responds to an infection. Sepsis is treated in the hospital with IV antibiotics, fluids, and other medicines. Follow these instructions at home: Medicines ? Take guit-xxu-izvuvfy and prescription medicines only as told by your health care provider. ? If you were prescribed an antibiotic medicine, take it as told by your health care provider. Do not stop using the antibiotic even if you start to feel better. General instructions ? Make sure you: ? Empty your bladder often and completely. Do not hold urine for long periods of time. ? Empty your bladder after sex. ? Wipe from front to back after urinating or having a bowel movement if you are female. Use each tissue only one time when you wipe. ? Drink enough fluid to keep your urine pale yellow. ? Keep all follow-up visits. This is important. Contact a health care provider if: ? Your symptoms do not get better after 1?2 days. ? Your symptoms go away and then return. Get help right away if: ? You have severe pain in your back or your lower abdomen. ? You have a fever or chills. ? You have nausea or vomiting. Summary ? A urinary tract infection (UTI) is an infection of any part of the urinary tract, which includes the kidneys, ureters, bladder, and urethra. ? Most urinary tract infections are caused by bacteria in your genital area. ? Treatment for this condition often includes antibiotic medicines. ? If you were prescribed an antibiotic medicine, take it as told by your health care provider. Do not stop using the antibiotic even if you start to feel better. ? Keep all follow-up visits. This is important. This information is not intended to replace advice given to you by your health care provider. Make sure you discuss any questions you have with your health care provider. Document Revised: (more content not included)... [facility] Evaluation note 07-26-2021 Note Date & Type Note Facility 07-26-2021 Evaluation note Encounter Date Diagnosis Assessment Notes Jul, Hyperthyroidism (ICD-10 - E05.90) See above treatment plan. Jul, Graves disease (ICD-10 - E05.00) She recently met with Dr. Mo with endocrinology and was dx with Graves disease given her abnormal thyroid labs and thyroid US. She was started on 3 different medications and she will call later today to update us with the names of these. She will continue to follow with endocrinology and follow up with our office in 6 weeks to see how she is doing. Specialty notes reviewed as received. Jul, Essential hypertension (ICD-10 - I10) Blood pressure well controlled with HCTZ 25 mg daily and is improving her leg swelling as well. Stress test and echo were previously ordered, she will complete these. Will continue this. Recent lab work reviewed with her as well. Take medication as prescribed, keep follow up appointments, get any testing that's been ordered done in a timely fashion. Do not smoke. Call if any questions or problems. For Hypertension: Patient is advised to work on healthy diet choices and appropriate servings, weight control, regular exercise as directed, and salt avoidance. Monitor blood pressures at home and call if above target. [facility] Other Evaluation note Note Date & Type Note Facility Evaluation note No Information [employer] Other History general Narrative - Reported Note Date & Type Note Facility History general Narrative - Reported Type Medical History bipolar Medical History CHF Surgical History back surgery 2000 Surgical History laminectomy Hospitalization History see above [facility] Other Summary Purpose Family History No Family History Records FoundNo Family History Records Found Advance Directives No Advanced Directives Records FoundNo Advanced Directives Records Found Additional Source Comments REASON FOR VISIT (unrecogniz ed section and content) Edematesting results2 week f ollow up INFORMATION SOURCE (unrecogn ized section and content) DATE CREATED AUTHOR 07/03/2023 [facility] DATE CREATED AUTHOR AUTHOR'S ORGANIZ ATION 01/28/2024 [facility] FOR RECORDS PERTAINING TO PATIENTS WHO ARE OR HAVE BEEN ENROLLED IN A CHEMICAL DEPENDENCY/SUBSTANCEABUSE PROGRAM, SOME INFORMATION MAY BE OMITTED. This clinical summary was aggregated from multiple sources. Caution should be exercised in using it in the provision of clinical care. This summary normalizes information from multiple sources, and as a consequence, information in this document may materially change the coding, format and clinical context of patient data. In addition, data may be omitted in some cases. CLINICAL DECISIONS SHOULD BE BASED ON THE PRIMARY CLINICAL RECORDS. [facility] [employer] [facility]. provides no warranty or guarantee of the accuracy or completeness of information in this document.
[2024-02-01] MEDS: VANCOMYCIN HCL 500 MG in 0.9 % SODIUM CHLORIDE 250 ML 250 MG IV (04:36)
[2024-02-01] MEDS: VANCOMYCIN HCL 1,000 MG in 0.9 % SODIUM CHLORIDE 250 ML 250 MG IV (05:41)
[2024-02-01 06:50] VITALS: BP 130/78; PULSE 89; TEMP 36.6; O2SAT 99
== END 2024-02-01 06:58 | disposition home or self-care (01) ==
PROVIDERS: Emergency Provider Emergency Medicine; PCP Nurse Practitioner Family
DX: Z79.899 Other long term (current) drug therapy (principal); L03.115 Cellulitis of right lower limb
CPT/HCPCS: 96365; 96366; 96368; 99284; J3370